=== PATIENT | female | born 1950 | race Caucasian/White ===

== ENCOUNTER 2017-01-26 15:28 | Emergency (ER) | payer SELFPAY ==
[~2017-01-26 15:28] MED LIST: BG MC; GLIPIZIDE5 MG PO; METFORMIN HCL850 MG PO; PERCOCET1 TA1 PO
[2017-01-26 18:21] LABS: UA SPECIFIC GRAVITY 1.015 (1.005-1.035); microscopic required? YES; urine erythrocyte NEGATIVE (NEGATIVE)
[2017-01-26 18:23] LABS: BASOPHIL % 0.3 % (0-2); PLATELET COUNT 263 x10^3mcL (130-400); RED CELL DISTRIBUTION WIDTH 13.8 % (11.5-14.5)
[2017-01-26 18:31] LABS: CALCIUM 8.4 mg/dL (8.5-10.1)
[2017-01-26 18:33] LABS: BILIRUBIN TOTAL 0.4 mg/dL (0.20-1.00)
[2017-01-26 18:35] LABS: CARBON DIOXIDE 27.3 mmol/L (21-32); CREATININE SERUM 1.4 mg/dL (0.6-1.0); POTASSIUM SERUM 3.9 mmol/L (3.5-5.1); TOTAL PROTEIN, SERUM 6.4 g/dL (6.4-8.2)
[2017-01-26 18:46] LABS: CHOLESTEROL/HDL RATIO 5.8
[2017-01-26 19:15] VITALS: BP 155/73
[2017-01-26 19:36] LABS: T3 TOTAL 1.04 ng/mL
[2017-01-26 21:07] LABS: FREE T4 0.86 ng/dL (0.76-1.46); FREE THYROXINE INDEX 2.2 ug/dL (1.4-4.5)
== END 2017-01-26 19:15 | disposition home or self-care (01) ==
LOC: ED 15:28
PROVIDERS: Specialist
DX: K80.50 Calculus of bile duct without cholangitis or cholecystitis without obstruction (principal); Z90.89 Acquired absence of other organs
CPT/HCPCS: 83880; 84439; J1885; J7030; Q0092

== ENCOUNTER 2017-08-13 22:03 | Emergency (ER) | payer MEDICAID ==
[~2017-08-13] VITALS: Ht 157.5 cm; Wt 70.3 kg
[2017-08-13 23:42] VITALS: BP 121/79
== END 2017-08-13 23:42 | disposition home or self-care (01) ==
LOC: ED 22:03
DX: S43.401A Unspecified sprain of right shoulder joint, initial encounter (principal); E11.9 Type 2 diabetes mellitus without complications; Z86.79 Personal history of other diseases of the circulatory system; X50.0XXA Overexertion from strenuous movement or load, initial encounter; Y93.89 Activity, other specified; Y99.8 Other external cause status; Y92.098 Other place in other non-institutional residence as the place of occurrence of the external cause

== ENCOUNTER 2017-08-21 00:34 | Emergency (ER) | payer MEDICAID ==
[2017-08-21 02:04] VITALS: BP 114/81
== END 2017-08-21 02:04 | disposition home or self-care (01) ==
LOC: ED 00:34
DX: M75.101 Unspecified rotator cuff tear or rupture of right shoulder, not specified as traumatic (principal); E11.9 Type 2 diabetes mellitus without complications

== ENCOUNTER 2017-09-16 06:13 | Emergency (ER) | payer MEDICAID ==
[~2017-09-16] VITALS: Ht 162.6 cm; Wt 58.1 kg
[2017-09-16 06:22] VITALS: Ht 162.6 cm; Wt 58.1 kg
[2017-09-16 07:27] LABS: BASOPHIL % 1.6 % (0-2); RED CELL DISTRIBUTION WIDTH 12.9 % (11.5-14.5)
[2017-09-16 07:33] LABS: CALCIUM 8.5 mg/dL (8.5-10.1); CARBON DIOXIDE 26.6 mmol/L (21-32); CREATININE SERUM 1.2 mg/dL (0.6-1.0); PLATELET COUNT 240 x10^3mcL (130-400)
[2017-09-16 07:38] LABS: ALBUMIN 3.4 g/dL (3.4-5.0); BILIRUBIN TOTAL 0.41 mg/dL (0.20-1.00); TOTAL PROTEIN, SERUM 7.4 g/dL (6.4-8.2)
[2017-09-16 07:49] LABS: CK-MB < 0.5 ng/mL (0-3.6); CREATINE KINASE 120 U/L (26-192)
[2017-09-16 10:57] VITALS: BP 132/89
== END 2017-09-16 10:55 | disposition home or self-care (01) ==
LOC: ED 06:13
PROVIDERS: Emergency Medicine
DX: K80.20 Calculus of gallbladder without cholecystitis without obstruction (principal); J11.1 Influenza due to unidentified influenza virus with other respiratory manifestations; E11.9 Type 2 diabetes mellitus without complications; I10 Essential (primary) hypertension
CPT/HCPCS: 83880; 87804; J2405; J7030; Q0092

== ENCOUNTER 2018-04-20 12:26 | Emergency (ER) | payer MEDICAID ==
[~2018-04-20] VITALS: Ht 160 cm; Wt 59.0 kg
[2018-04-20 12:36] VITALS: Ht 160 cm; Wt 59.0 kg
[2018-04-20 14:42] VITALS: BP 117/50
== END 2018-04-20 14:42 | disposition home health service (06) ==
LOC: ED 12:26
DX: S80.02XA Contusion of left knee, initial encounter (principal); S60.221A Contusion of right hand, initial encounter; W18.39XA Other fall on same level, initial encounter; Y93.89 Activity, other specified; Y92.89 Other specified places as the place of occurrence of the external cause; Y99.8 Other external cause status